=== PATIENT | female | born 1930 | race Caucasian/White ===

== ENCOUNTER → 2018-08-21 | Outpatient (CLI) | payer MEDICARE, OTHER ==
[~2018-08-21] MED LIST: ASPI81CH PO; DONE10 PO; GLIM2 PO; GUAI600T33; LISI20 PO; ROBITUSSIN DM; SIMV10 PO; ZPAK PO
== END | disposition home or self-care (01) ==
LOC: LAB EV 17:54 → LAB SHORT 17:54
DX: N39.0 Urinary tract infection, site not specified (principal)
CPT/HCPCS: 87086

== ENCOUNTER 2019-07-24 17:26 | Observation (INO) | payer MEDICARE, OTHER ==
[~2019-07-24] VITALS: Ht 165.1 cm; Wt 70.3 kg
[~2019-07-24 17:26] MED LIST changes: -ASPI81CH PO; +Aspir 8181 MG PO; -SIMV10 PO; +SIMV40 PO
[2019-07-24 18:35] LABS: BASOPHILS ABSOLUTE AUTO 0.07 K/mm3 (0.00-0.23); BASOPHILS PERCENT AUTO 1 % (0-2); EOSINOPHILS ABSOLUTE AUTO 0.13 K/mm3 (0.00-0.68); EOSINOPHILS PERCENT AUTO 2 % (0-6); Hematocrit 37.7 % (33.0-51.0); IMMATURE GRAN ABSOLUTE AUTO 0.05 K/mm3 (0.00-0.10); IMMATURE GRAN PERCENT AUTO 1 % (0-1); LYMPHOCYTES ABSOLUTE AUTO 1.65 K/mm3 (0.84-5.20); LYMPHOCYTES PERCENT AUTO 19 % (21-46); MONOCYTES ABSOLUTE AUTO 1.43 K/mm3 (0.16-1.47); MONOCYTES PERCENT AUTO 16 % (4-13); Mean Corpuscular HGB 28.3 pg (26.0-34.0); Mean Corpuscular HGB Conc 31.8 g/dL (31.5-36.5); Mean Corpuscular Volume 89 fL (80-100); Mean Platelet Volume 10.5 fL (9.1-12.4); NEUTROPHILS ABSOLUTE AUTO 5.54 K/mm3 (1.96-9.15); NEUTROPHILS PERCENT AUTO 62 % (41-73); Platelet Count 360 K/mm3 (150-400); RDW Coefficient Variation 14.2 % (11.7-14.2); RDW Standard Deviation 45.6 fL (35.1-46.3); Red Blood Cell Count 4.24 M/mm3 (3.80-5.20); White Blood Cell Count 8.87 K/mm3 (4.00-11.30)
[2019-07-24 18:49] LABS: Source, Urine Clean Catch
[2019-07-24 18:52] LABS: Alanine Aminotransfer (ALT/SGP 18 U/L (12-78); Albumin, Blood 2.8 g/dL (3.4-5.0); Albumin/Globulin Ratio 0.7 (0.8-1.8); Alk Phos 64 U/L (50-136); Anion Gap 6 mmol/L (6-16); Aspartate Aminotrans (AST/SGOT 12 U/L (12-37); Bilirubin, Total 0.4 mg/dL (0.1-1.0); Blood Urea Nitrogen 20 mg/dL (8-24); Bun/Creatinine Ratio 32.1 (12.0-20.0); CO2, Blood 28 mmol/L (21-32); Calcium, Blood 8.3 mg/dL (8.5-10.1); Chloride, Blood 106 mmol/L (98-108); Creatinine, Blood 0.62 mg/dL (0.40-1.00); Globulin, Blood 4.2 g/dL (2.2-4.0); Glomerular Filtration Rate >60 (60-); Glucose, Blood 88 mg/dL (70-99); Potassium, Blood 4.1 mmol/L (3.5-5.5); Sodium, Blood 140 mmol/L (136-145)
[2019-07-24 18:55] LABS: Bilirubin, Urine Neg (Neg); Blood, Urine 1+ (Neg); Glucose Qualitative, Urine Neg (Neg); Ketones, Urine Neg (Neg); Leukocyte Esterase, Urine Neg (Neg); Nitrite, Urine Neg (Neg); Protein, Urine Neg (Neg); Specific Gravity, Urine 1.015 (1.003-1.022); Urobilinogen, Urine NORM (Normal)
[2019-07-24] MEDS ORDERED: ALEN70 PO (19:07)
[2019-07-24] MEDS ORDERED: Duoneb 2.5-0.5 M3 ML NEB (19:08)
[2019-07-24 19:16] LABS: Color, Urine Yellow (P-Yellow)
[2019-07-24 19:17] LABS: Appearance, Urine Clear (Clear)
[2019-07-24 19:18] LABS: Bacteria Few /hpf; Red Blood Cells, Urine 0-2 /hpf (0-2); Squamous Epithelial Cells Few /hpf (Few); White Blood Cells, Urine 0-2 /hpf (0-5)
[2019-07-24 19:23] LABS: Magnesium, Blood 2.3 mg/dL (1.6-2.4); Troponin I 0.103 ng/mL (0.000-0.040)
[2019-07-24 19:38] LABS: Influenza A Negative (NEGATIVE); Influenza B Negative (NEGATIVE)
--- NOTE | 2019-07-25 00:34 | NUR ---
3720 REPORT RECEIVED FROM LAKEISHA RN, ER NURSE; TO ROOM 347 PER CART FROM ER; ASSISTED INTO BED VIA SLIDER SHEET X 3 ASSIST; ALERT AND ORIENTED X 1; TELEMETRY APPLIED WHICH REFLECTS A/FIB WITH HEART RATE 72 PER MARYBEL--CABINET ASSEMBLER; O2 APPLIED AT 2L/M PER NASAL CANNULA WITH SATS 94%; BED ALARM APPLIED, BED LOW POSITION WITH CALL LIGHT AT SIDE.
[2019-07-25 02:08] LABS: Hematocrit 38.3 % (33.0-51.0); Mean Corpuscular HGB 28.8 pg (26.0-34.0); Mean Corpuscular HGB Conc 31.3 g/dL (31.5-36.5); Mean Platelet Volume 10.6 fL (9.1-12.4); Platelet Count 354 K/mm3 (150-400); RDW Standard Deviation 47.4 fL (35.1-46.3); Red Blood Cell Count 4.16 M/mm3 (3.80-5.20); White Blood Cell Count 7.06 K/mm3 (4.00-11.30)
[2019-07-25 02:09] LABS: Mean Corpuscular Volume 92 fL (80-100)
[2019-07-25 02:26] LABS: Anion Gap 5 mmol/L (6-16); BAND PERCENT MAN 14 % (0-8); BASOPHILS PERCENT MAN 0 % (0-2); Blood Urea Nitrogen 21 mg/dL (8-24); Bun/Creatinine Ratio 31.5 (12.0-20.0); CO2, Blood 29 mmol/L (21-32); Calcium, Blood 8.2 mg/dL (8.5-10.1); Chloride, Blood 107 mmol/L (98-108); Creatinine, Blood 0.67 mg/dL (0.40-1.00); EOSINOPHILS PERCENT MAN 0 % (0-6); Glomerular Filtration Rate >60 (60-); Glucose, Blood 156 mg/dL (70-99); LYMPHOCYTES ABSOLUTE MAN 0.91 K/mm3 (0.84-5.20); LYMPHOCYTES PERCENT MAN 13 % (21-46); MONOCYTES ABSOLUTE MAN 0.21 K/mm3 (0.16-1.47); MONOCYTES PERCENT MAN 3 % (4-13); NEUTROPHILS ABSOLUTE MAN 5.93 K/mm3 (1.96-9.15); Potassium, Blood 4.3 mmol/L (3.5-5.5); SEG NEUTROPHILS PERCENT MAN 70 % (41-73); Sodium, Blood 141 mmol/L (136-145); TOTAL CELLS COUNTED 100
--- NOTE | 2019-07-25 04:33 | NUR ---
SHIFT SUMMARY: 89 Y/O FEMALE RESTED COMFORTABLY ALL SHIFT; DENIES PAIN OR NAUSEA; NPO STATUS MAINTAINED (Brandan DURAND CONFIRMED NPO STATUS WHEN PATIENT INITIALLY WAS ADMITTED TO FLOOR AND NO IV CURRENTLY ORDERED); PT ALERT AND ORIENTED X 1; ABLE TO FOLLOW ALL SIMPLE VERBAL COMMANDS; THOUGHT PROCESS IS DISORGANIZED; ABLE TO MOVE ALL EXTREMITIES; PT IS DNR; TELEMETRY REFLECTS A/FIB WITH HEART RATE 54 PER NESTOR--TEST CENTER ADMINISTRATOR; BED ALARM APPLIED, BED LOW POSITION WITH CALL LIGHT AT SIDE.
--- NOTE | 2019-07-25 07:00 | NUR ---
ASSUMED CARE OF PT- PT ALERT AND ORIENTED AND INDEPENDENT IN THE PEREZ. PT IS VERY ENERGIZED THIS MORNING AND IS ASKING IF SHE GETS TO GO HOME TODAY. PT IS ON 60 MG IV SOLUMEDROL Q6 AT THIS TIME.
--- NOTE | 2019-07-25 07:15 | NUR ---
ASSUMED CARE OF PT- REPORT COMPLETED WITH NIGHT RN DOV. PER REPORT PT ADMITTED LAST NIGHT FOR POSSIBLE TIA. PT SPEECH SEEMS APPROPRIATE AND THEN GARBLED BACK AND FORTH. ANSWERS MOST QUESTIONS AND FOLLOWS BASIC INSTRUCTIONS. PT IS A 1PA WITH A FWW, PER REPORT SHE IS VERY STABLE WITH THE WALKER.
--- NOTE | 2019-07-25 09:00 | NUR ---
SPOKE TO DR PATRICK- PT HAS NPO ORDER. CAME TO SEE THE PT; FAMILY STATED DR HAD TOLD THE PT SHE CAN EAT WHAT SHE WANTS. RECIEVED ORDER FOR DIET TOLLERATED. PLACED ORDER FOR REGULAR DIET AND REQUESTED A TRAY NOW. PT STATED SHE TAKES HER MEDICATIONS IN APPLE SAUCE. PLACED A FOOD REQUEST FOR APPLESAUCE ON EACH TRAY.
--- NOTE | 2019-07-25 11:00 | NUR ---
PT COGNITION IS LESS THAN ORIGIONALY THOUGHT. PT CAN NOT ANSWER SOME BASIC QUESTIONS ABOUT HERSELF. SHE CAN NOT TELL THE YEAR, PRESIDENT, HER ADRYAN SHE USES A WALKER AT HOME, WHERE SHE LIVES OR WHO SHE LIVES WITH. PT IS ALSO VERY FORGETFULL AND WILL CALL STAFF INTO THE ROOM, ASK A QUESTION, MINUTES LATER SHE WILL CALL STAFF INTO THE ROOM AND SAY "FINALLY SOMEONE CAME" WHEN STAFF INFORM HER THEY WERE JUST THERE SHE BECOMES UPSET SAYING THEN WHY DIDN'T YOU TELL ME WHAT I AM SUPPOSED TO BE DOING. PT DID RECOGNIZE HER DAUGHTER WHEN SHE CAME IN THIS MORNING, SO SHE IS ALERT AND ORIENTED TO SELF AND FAMILY. SHE THINKS SHE IS IN [facility].
--- NOTE | 2019-07-25 11:29 | NUR ---
echocardiogram complete
[2019-07-25 11:36] LABS: Adenovirus Not Detected (NOT DETECT); Bordetella pertussis Not Detected (NOT DETECT); Chlamydophila pneumoniae Not Detected (NOT DETECT); Coronavirus 229E Not Detected (NOT DETECT); Coronavirus HKU1 Not Detected (NOT DETECT); Coronavirus NL63 Not Detected (NOT DETECT); Coronavirus OC43 Not Detected (NOT DETECT); Human Metapneumovirus Not Detected (NOT DETECT); Human Rhinovirus/Enterovirus Detected (NOT DETECT); Influenza A Not Detected (NOT DETECT); Influenza A/2009-H1 Not Detected (NOT DETECT); Influenza A/H1 Not Detected (NOT DETECT); Influenza A/H3 Not Detected (NOT DETECT); Influenza B Not Detected (NOT DETECT); Mycoplasma pneumoniae Not Detected (NOT DETECT); Parainfluenza Virus 1 Not Detected (NOT DETECT); Parainfluenza Virus 2 Not Detected (NOT DETECT); Parainfluenza Virus 3 Not Detected (NOT DETECT); Parainfluenza Virus 4 Not Detected (NOT DETECT); Respiratory Syncytial Virus Not Detected (NOT DETECT)
--- NOTE | 2019-07-25 15:03 | NUR ---
CALLED DR PATRICK- PT REMOVED TELE WIRES AND SOME OF THE PATCHES REMOVED HER ID BAND AND HER IV. WHEN STAFF ENTERED THE ROOM SHE GAVE IT TO THEM. DISCUSSED THE NEED FOR THE IV WITH THE PT. PT SAID "OH. I'M SORRY I DIDN'T KNOW I NEEDED THAT." PT CALMLY WAITED FOR STAFF TO PLACE THE NEW IV. ONCE IT WAS IN PLACE AND COVERED PT REMOVED THE COVER. STAFF COVERED THE IV MORE SECURELY PRIOR TO LEAVING THE ROOM. PT REMOVED THE COVER WELL THE NEW IV. SPOKE TO DR PATRICK ABOUT THIS AND RECIEVED AN ORDER FOR NO IV ACCESS AND DC TELE. LEVAQUIN TO BE CHANGED TO PO. DISCHARGE PLANNING HAS SPOKEN WITH THE PT DAUGHTER ABOUT POSSIBLE NEED FOR PLACEMENT D/T INCREASED CONFUSION. THEY ARE STARTING APD PAPERWORK NOW (AGEING AND PEOPLE WITH DISABILITIES).
--- NOTE | 2019-07-25 16:13 | NUR ---
Rec'd an update of events this afternoon. Pt is currently sitting in the bedside chair sleeping. Will leave her undisturbed at this time. Nursing reports pt's dtr spoke with CM RN re: starting APD process for assistance. Pt currently living at [facility] in the independent living with a caregiver who checks on her. Per chart notes it appears that pt is not able to continue living independently due to increasing confusion and increasing care needs. PC will continue to follow for symptom management and advanced care planning.
--- NOTE | 2019-07-25 17:31 | NUR ---
SHIFT SUMMARY- PT HAS A Hx OF DEMENTIA, THAT SEEMS TO BE ADVANCING. SPEECH EVAL WAS COMPLETED TODAY. PT HAS NO IV ACCESS WELL NO TELE (SEE PREVIOUS NOTES FOR DETAILS). PT FAMILY IS AWARE OF HER COGNITIVE ABILITY AT THIS TIME AND WOULD LIKE TO PLACE THE PT IN A HIGHER LEVEL OF CARE. CARE MANAGEMENT IS ON THE CASE AND IS TRYING TO ASSIST WITH THIS. PT HAD A COMPLAINT OF RIGHT RIB PAIN; FAMILY STATED THE PT HAS HAD A COUPLE OF FALLS RECENTLY AND THAT THE PT MAY HAVE A CRACKED RIB. TYLENOL RESOLVED THE PAIN TO 0/10 PER THE PT. PT IS ON 2L VIA NC THAT IS THE HOME DOSE FOR THIS PT. PT HAS A HOME NEBULIZER MACHINE WELL.
--- NOTE | 2019-07-25 19:35 | NUR ---
REPORT RECEIVED FROM ARANZA DALTON;PT RESTING COMFORTABLY BEDSIDE LOUNGE CHAIR WITH CHAIR ALARM APPLIED.
--- NOTE | 2019-07-26 04:54 | NUR ---
SHIFT SUMMARY: 89 Y/O RESTED COMFORTABLY ALL SHIFT; PT HAD OCCASIONAL EPISODES OF ATTEMPTING TO CLIMB OOB WITH PATIENT ABLE TO BE REDIRECTED WITHOUT ISSUE BY NURSING STAFF; PATIENT SLEPT MAJORITY OF SHIFT IN BED; NO PAIN OR NAUSEA NOTED; WEARING O2 AT 2L/M PER NASAL CANNULA (REAPPLIED MULTIPLE TIMES PATIENT TENDS REMOVED DEVICE AT TIMES); BED ALARM APPLIED, BED LOW POSITION WITH CALL LIGHT AT SIDE.
[2019-07-26 05:32] LABS: BASOPHILS ABSOLUTE AUTO 0.05 K/mm3 (0.00-0.23); BASOPHILS PERCENT AUTO 1 % (0-2); EOSINOPHILS ABSOLUTE AUTO 0.12 K/mm3 (0.00-0.68); EOSINOPHILS PERCENT AUTO 2 % (0-6); Hematocrit 38.1 % (33.0-51.0); Hemoglobin 11.7 g/dL (11.5-16.0); IMMATURE GRAN ABSOLUTE AUTO 0.04 K/mm3 (0.00-0.10); IMMATURE GRAN PERCENT AUTO 1 % (0-1); LYMPHOCYTES ABSOLUTE AUTO 1.46 K/mm3 (0.84-5.20); LYMPHOCYTES PERCENT AUTO 20 % (21-46); MONOCYTES ABSOLUTE AUTO 1.13 K/mm3 (0.16-1.47); MONOCYTES PERCENT AUTO 16 % (4-13); Mean Corpuscular HGB Conc 30.7 g/dL (31.5-36.5); Mean Corpuscular Volume 91 fL (80-100); Mean Platelet Volume 10.6 fL (9.1-12.4); NEUTROPHILS ABSOLUTE AUTO 4.38 K/mm3 (1.96-9.15); NEUTROPHILS PERCENT AUTO 61 % (41-73); Platelet Count 376 K/mm3 (150-400); RDW Coefficient Variation 13.9 % (11.7-14.2); RDW Standard Deviation 47.1 fL (35.1-46.3); Red Blood Cell Count 4.18 M/mm3 (3.80-5.20); White Blood Cell Count 7.18 K/mm3 (4.00-11.30)
[2019-07-26 06:02] LABS: Albumin, Blood 2.5 g/dL (3.4-5.0); Anion Gap 4 mmol/L (6-16); Blood Urea Nitrogen 25 mg/dL (8-24); CO2, Blood 30 mmol/L (21-32); Chloride, Blood 109 mmol/L (98-108); Creatinine, Blood 0.76 mg/dL (0.40-1.00); Glomerular Filtration Rate >60 (60-); Glucose, Blood 89 mg/dL (70-99); Magnesium, Blood 2.4 mg/dL (1.6-2.4); Phosphorus, Blood 3.9 mg/dL (2.5-4.9); Sodium, Blood 143 mmol/L (136-145)
[2019-07-26 06:10] LABS: Troponin I 0.104 ng/mL (0.000-0.040)
[2019-07-26] MEDS ORDERED: ACET325 PO (11:59)
[2019-07-26] MEDS ORDERED: LEVFLO500 PO (12:00)
[2019-07-26] MEDS ORDERED: PRED20 PO (12:00)
--- NOTE | 2019-07-26 15:03 | NUR ---
DISCHARGE NOTE- PT DISCHARGED BACK TO [facility] WITH CAREGIVERS. DAUGHTER PRESENT FOR THE PT DISCHARGE INSTRUCTIONS MEDICATIONS FAXED OVER TO [facility] PER PT REQUEST. PT WAS ESCORTED OUT VIA WC BY THE ELECTRONIC DATA PROCESSING AUDITOR. PT HAS HOME O2. PT O2 SATS WHEN SHE WAS UP AROUND THE ROOM WERE MAINTAINING IN THE 90'S. PT WAS VERY CONFUSED AND HER FAMILY IS AWARE. PT WAS UP AND DOWN ALOT AND IT WAS DIFFICULT TO GET HER TO KEEP THE O2 IN PLACE, SATS SEEMED TO ALWAYS BE IN THE LOW 90'S. PT HAD A MILD STATEMENT OF PAIN IN THE RIGHT LOWER RIB AREA, BUT DID NOT WANT ANY TYLENOL FOR IT. PT HAD NO TELE OR IV AT THE TIME OF DISCHARGE.
== END 2019-07-26 14:15 | disposition home health service (06) ==
LOC: ER 17:26 → MEDS 17:27 → ENPENDDIS 07-26 10:00 → MEDS 07-26 14:15
PROVIDERS: Emergency Medicine; Internal Medicine Gastroenterology; Nurse Practitioner Acute Care; ADMIT Internal Medicine
DX: R47.89 Other speech disturbances (principal); J44.1 Chronic obstructive pulmonary disease with (acute) exacerbation; F03.90 Unspecified dementia, unspecified severity, without behavioral disturbance, psychotic disturbance, mood disturbance, and anxiety; R91.8 Other nonspecific abnormal finding of lung field; I10 Essential (primary) hypertension; E78.5 Hyperlipidemia, unspecified; E11.9 Type 2 diabetes mellitus without complications; Z66 Do not resuscitate; Z88.2 Allergy status to sulfonamides; Z79.82 Long term (current) use of aspirin; Z79.899 Other long term (current) drug therapy
CPT/HCPCS: 0099U; 36415; 70450; 71250; 80048; 80053; 80069; 81001; 83735; 83880; 84145; 84443; 84484; 85025; 87804; 92523; 93005; 93010; 93306; 94640; 94760; 96374; 97162; 99285-25; A9270; J1650; J1956; J2930; J7512

== ENCOUNTER 2019-07-27 08:15 | Inpatient (IN) | payer MEDICARE, OTHER ==
[~2019-07-27] VITALS: Ht 162.6 cm; Wt 61.2 kg
[~2019-07-27 08:15] MED LIST changes: +ACET325 PO; +ALEN70 PO; +Duoneb 2.5-0.5 M3 ML NEB; +LEVFLO500 PO; +PRED20 PO
[2019-07-27 09:33] LABS: BASOPHILS ABSOLUTE AUTO 0.06 K/mm3 (0.00-0.23); BASOPHILS PERCENT AUTO 1 % (0-2); EOSINOPHILS ABSOLUTE AUTO 0.03 K/mm3 (0.00-0.68); EOSINOPHILS PERCENT AUTO 0 % (0-6); Hemoglobin 12.5 g/dL (11.5-16.0); IMMATURE GRAN ABSOLUTE AUTO 0.16 K/mm3 (0.00-0.10); IMMATURE GRAN PERCENT AUTO 1 % (0-1); LYMPHOCYTES ABSOLUTE AUTO 1.04 K/mm3 (0.84-5.20); LYMPHOCYTES PERCENT AUTO 8 % (21-46); MONOCYTES PERCENT AUTO 11 % (4-13); Mean Corpuscular HGB 28.7 pg (26.0-34.0); Mean Corpuscular HGB Conc 30.5 g/dL (31.5-36.5); Mean Platelet Volume 11.1 fL (9.1-12.4); NEUTROPHILS ABSOLUTE AUTO 9.87 K/mm3 (1.96-9.15); NEUTROPHILS PERCENT AUTO 79 % (41-73); Platelet Count 349 K/mm3 (150-400); RDW Coefficient Variation 13.9 % (11.7-14.2); RDW Standard Deviation 48.6 fL (35.1-46.3); Red Blood Cell Count 4.36 M/mm3 (3.80-5.20); White Blood Cell Count 12.56 K/mm3 (4.00-11.30)
[2019-07-27 09:35] LABS: Mean Corpuscular Volume 94 fL (80-100)
[2019-07-27 09:52] LABS: Alanine Aminotransfer (ALT/SGP 20 U/L (12-78); Albumin, Blood 3.1 g/dL (3.4-5.0); Albumin/Globulin Ratio 0.7 (0.8-1.8); Alk Phos 63 U/L (50-136); Anion Gap 4 mmol/L (6-16); Aspartate Aminotrans (AST/SGOT 19 U/L (12-37); Bilirubin, Total 0.6 mg/dL (0.1-1.0); Blood Urea Nitrogen 28 mg/dL (8-24); Bun/Creatinine Ratio 46.1 (12.0-20.0); CO2, Blood 28 mmol/L (21-32); Calcium, Blood 8.3 mg/dL (8.5-10.1); Chloride, Blood 110 mmol/L (98-108); Creatinine, Blood 0.61 mg/dL (0.40-1.00); Globulin, Blood 4.2 g/dL (2.2-4.0); Glomerular Filtration Rate >60 (60-); Glucose, Blood 98 mg/dL (70-99); Potassium, Blood 3.8 mmol/L (3.5-5.5); Sodium, Blood 142 mmol/L (136-145); Total Protein, Blood 7.3 g/dL (6.4-8.2); Troponin I 0.203 ng/mL (0.000-0.040)
[2019-07-27 11:00] LABS: Source, Urine Catheter
[2019-07-27 11:03] LABS: Bilirubin, Urine Neg (Neg); Blood, Urine 2+ (Neg); Glucose Qualitative, Urine Neg (Neg); Ketones, Urine 1+ (Neg); Leukocyte Esterase, Urine Neg (Neg); Nitrite, Urine Neg (Neg); Protein, Urine 2+ (Neg); Urobilinogen, Urine NORM (Normal)
[2019-07-27 11:24] LABS: Appearance, Urine Clear (Clear); Color, Urine Yellow (P-Yellow)
[2019-07-27 11:25] LABS: Bacteria Rare /hpf; Squamous Epithelial Cells Few /hpf (Few)
--- NOTE | 2019-07-27 16:09 | NUR ---
SHIFT SUMMARY PT ADMITTED FROM THE ER THIS AFTERNOON. SHE IS ALERT AND ORIENTED TO HERSELF AND FAMILY AND FOLLOWING DIRECTIONS BUT VERY FORGETFUL AND CONFUSED. SHE C/O PAIN WHEN TURNING IN HER HIPS AND TYLENOL WAS GIVEN ORDERED. NO SWALLOWING ISSUES NOTED. LUNG SOUNDS WERE COARSE AND DAUGHTER REPORTS THAT SHE TAKES BREATHING TX MULTIPLE TIMES A DAY AT HOME AND RT WAS NOTIFIED AND GAVE A TX AT THE BEDSIDE. PT IS ON 2 LPM OF O2 BUT HAS NO S/S OF RESP DISTRESS. PT WAS ORIENTED TO HER ROOM, CALL LIGHT AND NURSING STAFF. BED ALARM IS ON FOR SAFETY. DAUGHTER IS AT BEDSIDE. CALL LIGHT IN REACH.
[2019-07-28 01:40] LABS: BASOPHILS ABSOLUTE AUTO 0.01 K/mm3 (0.00-0.23); BASOPHILS PERCENT AUTO 0 % (0-2); EOSINOPHILS PERCENT AUTO 0 % (0-6); Hematocrit 36.5 % (33.0-51.0); Hemoglobin 11.1 g/dL (11.5-16.0); IMMATURE GRAN ABSOLUTE AUTO 0.03 K/mm3 (0.00-0.10); IMMATURE GRAN PERCENT AUTO 0 % (0-1); LYMPHOCYTES PERCENT AUTO 12 % (21-46); MONOCYTES ABSOLUTE AUTO 0.58 K/mm3 (0.16-1.47); MONOCYTES PERCENT AUTO 9 % (4-13); Mean Corpuscular HGB Conc 30.4 g/dL (31.5-36.5); Mean Corpuscular Volume 92 fL (80-100); Mean Platelet Volume 10.9 fL (9.1-12.4); NEUTROPHILS ABSOLUTE AUTO 5.36 K/mm3 (1.96-9.15); NEUTROPHILS PERCENT AUTO 79 % (41-73); Platelet Count 346 K/mm3 (150-400); RDW Coefficient Variation 13.9 % (11.7-14.2); RDW Standard Deviation 47.6 fL (35.1-46.3); Red Blood Cell Count 3.96 M/mm3 (3.80-5.20); White Blood Cell Count 6.78 K/mm3 (4.00-11.30)
[2019-07-28 01:58] LABS: Anion Gap 4 mmol/L (6-16); Blood Urea Nitrogen 33 mg/dL (8-24); Bun/Creatinine Ratio 39.8 (12.0-20.0); CO2, Blood 29 mmol/L (21-32); Chloride, Blood 110 mmol/L (98-108); Creatinine, Blood 0.83 mg/dL (0.40-1.00); Glomerular Filtration Rate >60 (60-); Glucose, Blood 141 mg/dL (70-99); Potassium, Blood 4.5 mmol/L (3.5-5.5); Sodium, Blood 143 mmol/L (136-145); Troponin I 0.245 ng/mL (0.000-0.040)
--- NOTE | 2019-07-28 04:06 | NUR ---
SHIFT SUMMARY: VSS. AFEB. A/OX2. VERY FORGETFUL. COMMUNICATES NEEDS. BED ALARM ON. NO ATTEMPTS TO GET OOB. PT ACUTELY AWARE OF AND MOVEMENT LIMITED BY PAIN IN PELVIS AND LE. REPORTS PAIN/TENDERNESS TO THE TOUCH BELOW L KNEE. NO BRUISING/SWELLING/OR DEFORMITY VISIBLE. INCREASED WEAKNESS IN LLE COMPARED TO RLE WITH PUSHES/PULLS. OXYCODONE ADMINISTERED AT 1/2 DOSE. PT RADHA WELL. NO RESP SUPPRESION. PAIN IMPROVED AND PT REMAINED AWAKE WATCHING TV COMFORTABLY. CONT TO BE PAINFUL WITH TURNS. SLEEPING INTERMITTENTLY. WILL CONT TO MONITOR.
--- NOTE | 2019-07-28 18:31 | NUR ---
PATIENT A/O TO SELF AND FAMILY ONLY. UP WITH FWW, GB AND 1 ASSIST TO CHAIR TODAY. VSS, ON 2LO2 HERE AND AT BASELINE. FALL PRECAUTIONS PER UNIT PROTOCOL. OXYCODONE GIVEN TO TREAT L PELVIC PAIN. SKIN INTACT. 22G IV TO L HAND WNL AND SL. TOLEARATING DIET. INCONTINENT OF BLADDER, WEARING ATTENDS. CALM AND COOPERATIVE WITH CARE.
--- NOTE | 2019-07-29 05:23 | NUR ---
LEAD SYSTEMS ANALYST SUMMARY Patient awake most of night. Yelling out "help" from room because she wanted to get up, didn't know where she was. Very little pain while lying in bed, but patient would scream out when she was repositioned, or when she would insist on getting up on commode. Patient only took oxycodone once over-night, and it helped her fall right to sleep for a brief time. bed alarm on at all times. frequent checks for safety
[2019-07-29] MEDS ORDERED: OXYC5 PO (13:32)
--- NOTE | 2019-07-29 16:43 | NUR ---
DISCHARGE SUMMARY PATIENT DISCHARGED WITH TRANSPORT SERVICES. PATIENT PAINFUL WITH TRANSFER. 1 PERSON WITH LOTS OF ENCOURAGEMENT TO W/C. FAMILY AT BEDSIDE PRIOR TO DISCHARGE. HARD SCRIPT GIVEN TO DAUGHTER. DAUGHTER STATED SHE WOULD MEET HER MOM AT HER APARTMENT. REPORT CALLED TO HER CAREGIVER.
== END 2019-07-29 16:30 | disposition home health service (06) | DRG 536 ==
LOC: ER 08:15 → MEDS 08:16 → ER 14:40 → MEDS 14:40
PROVIDERS: Emergency Medicine; Internal Medicine; Physician Assistant; ADMIT Internal Medicine
DX: S32.592A Other specified fracture of left pubis, initial encounter for closed fracture (principal); I48.20 Chronic atrial fibrillation, unspecified; J44.1 Chronic obstructive pulmonary disease with (acute) exacerbation; I24.8 Other forms of acute ischemic heart disease; J98.11 Atelectasis; F03.90 Unspecified dementia, unspecified severity, without behavioral disturbance, psychotic disturbance, mood disturbance, and anxiety; W19.XXXA Unspecified fall, initial encounter; I45.19 Other right bundle-branch block; Z87.891 Personal history of nicotine dependence; M16.12 Unilateral primary osteoarthritis, left hip; M81.0 Age-related osteoporosis without current pathological fracture; Z66 Do not resuscitate
CPT/HCPCS: 36415; 36416; 70450; 71045; 73502; 80048; 80053; 81001; 84484; 85025; 93005; 93010; 94640; 94760; 97110; 97162; 97166; 97530; 99285-25; A9270; J1650; J7512; P9612

== ENCOUNTER 2019-08-18 09:48 | Emergency (ER) | payer MEDICARE, OTHER ==
[~2019-08-18] VITALS: Ht 157.5 cm; Wt 72.6 kg
[~2019-08-18 09:48] MED LIST changes: +OXYC5 PO
[2019-08-18] MEDS ORDERED: ASPI81CH PO (10:05)
[2019-08-18 10:33] LABS: BASOPHILS ABSOLUTE AUTO 0.06 K/mm3 (0.00-0.23); BASOPHILS PERCENT AUTO 1 % (0-2); EOSINOPHILS ABSOLUTE AUTO 0.25 K/mm3 (0.00-0.68); EOSINOPHILS PERCENT AUTO 3 % (0-6); Hematocrit 39.3 % (33.0-51.0); Hemoglobin 11.9 g/dL (11.5-16.0); IMMATURE GRAN ABSOLUTE AUTO 0.05 K/mm3 (0.00-0.10); IMMATURE GRAN PERCENT AUTO 1 % (0-1); LYMPHOCYTES ABSOLUTE AUTO 1.13 K/mm3 (0.84-5.20); LYMPHOCYTES PERCENT AUTO 11 % (21-46); MONOCYTES ABSOLUTE AUTO 0.69 K/mm3 (0.16-1.47); MONOCYTES PERCENT AUTO 7 % (4-13); Mean Corpuscular HGB 29.2 pg (26.0-34.0); Mean Corpuscular HGB Conc 30.3 g/dL (31.5-36.5); Mean Corpuscular Volume 96 fL (80-100); Mean Platelet Volume 10.5 fL (9.1-12.4); NEUTROPHILS ABSOLUTE AUTO 7.71 K/mm3 (1.96-9.15); NEUTROPHILS PERCENT AUTO 78 % (41-73); Platelet Count 334 K/mm3 (150-400); RDW Coefficient Variation 15.5 % (11.7-14.2); RDW Standard Deviation 54.4 fL (35.1-46.3); Red Blood Cell Count 4.08 M/mm3 (3.80-5.20); White Blood Cell Count 9.89 K/mm3 (4.00-11.30)
[2019-08-18 10:53] LABS: Alanine Aminotransfer (ALT/SGP 24 U/L (12-78); Albumin, Blood 2.3 g/dL (3.4-5.0); Albumin/Globulin Ratio 0.6 (0.8-1.8); Alk Phos 270 U/L (50-136); Anion Gap 2 mmol/L (6-16); Aspartate Aminotrans (AST/SGOT 27 U/L (12-37); Bilirubin, Total 0.5 mg/dL (0.1-1.0); Blood Urea Nitrogen 17 mg/dL (8-24); CO2, Blood 29 mmol/L (21-32); Calcium, Blood 7.9 mg/dL (8.5-10.1); Chloride, Blood 108 mmol/L (98-108); Creatinine, Blood 0.63 mg/dL (0.40-1.00); Glomerular Filtration Rate >60 (60-); Glucose, Blood 155 mg/dL (70-99); Potassium, Blood 5.1 mmol/L (3.5-5.5); Sodium, Blood 139 mmol/L (136-145); Total Protein, Blood 6.3 g/dL (6.4-8.2)
[2019-08-18] MEDS ORDERED: Lasix20 MG PO (11:36)
== END 2019-08-18 11:54 | disposition home or self-care (01) ==
LOC: ER 09:48
PROVIDERS: Emergency Medicine
DX: S81.811A Laceration without foreign body, right lower leg, initial encounter (principal); R60.0 Localized edema; J44.9 Chronic obstructive pulmonary disease, unspecified; F03.90 Unspecified dementia, unspecified severity, without behavioral disturbance, psychotic disturbance, mood disturbance, and anxiety; Z88.2 Allergy status to sulfonamides; Z79.899 Other long term (current) drug therapy; Z87.891 Personal history of nicotine dependence; W18.30XA Fall on same level, unspecified, initial encounter
CPT/HCPCS: 36415; 71046; 80053; 83880; 84484; 85025; 93005; 93010; 93970

== ENCOUNTER 2019-08-24 09:11 | Emergency (ER) | payer MEDICARE, OTHER ==
[~2019-08-24] VITALS: Ht 160 cm; Wt 70.3 kg
[~2019-08-24 09:11] MED LIST changes: +ASPI81CH PO; +Lasix20 MG PO
[2019-08-24 10:46] LABS: BASOPHILS ABSOLUTE AUTO 0.04 K/mm3 (0.00-0.23); BASOPHILS PERCENT AUTO 0 % (0-2); EOSINOPHILS ABSOLUTE AUTO 0.02 K/mm3 (0.00-0.68); EOSINOPHILS PERCENT AUTO 0 % (0-6); Hematocrit 39.2 % (33.0-51.0); Hemoglobin 11.8 g/dL (11.5-16.0); IMMATURE GRAN ABSOLUTE AUTO 0.12 K/mm3 (0.00-0.10); IMMATURE GRAN PERCENT AUTO 1 % (0-1); LYMPHOCYTES ABSOLUTE AUTO 0.57 K/mm3 (0.84-5.20); LYMPHOCYTES PERCENT AUTO 6 % (21-46); MONOCYTES ABSOLUTE AUTO 1.45 K/mm3 (0.16-1.47); MONOCYTES PERCENT AUTO 14 % (4-13); Mean Corpuscular HGB 28.6 pg (26.0-34.0); Mean Corpuscular HGB Conc 30.1 g/dL (31.5-36.5); Mean Corpuscular Volume 95 fL (80-100); Mean Platelet Volume 10.9 fL (9.1-12.4); NEUTROPHILS PERCENT AUTO 79 % (41-73); Platelet Count 151 K/mm3 (150-400); RDW Coefficient Variation 15.4 % (11.7-14.2); Red Blood Cell Count 4.13 M/mm3 (3.80-5.20)
[2019-08-24] MEDS ORDERED: POTA10T PO (10:46)
[2019-08-24 11:04] LABS: Alanine Aminotransfer (ALT/SGP 16 U/L (12-78); Albumin, Blood 2.3 g/dL (3.4-5.0); Albumin/Globulin Ratio 0.5 (0.8-1.8); Alk Phos 171 U/L (50-136); Anion Gap 5 mmol/L (6-16); Aspartate Aminotrans (AST/SGOT 22 U/L (12-37); Bilirubin, Total 0.3 mg/dL (0.1-1.0); Blood Urea Nitrogen 37 mg/dL (8-24); Bun/Creatinine Ratio 42.2 (12.0-20.0); CO2, Blood 30 mmol/L (21-32); Calcium, Blood 7.9 mg/dL (8.5-10.1); Chloride, Blood 108 mmol/L (98-108); Creatinine, Blood 0.88 mg/dL (0.40-1.00); Globulin, Blood 4.4 g/dL (2.2-4.0); Glomerular Filtration Rate >60 (60-); Glucose, Blood 113 mg/dL (70-99); Sodium, Blood 143 mmol/L (136-145); Total Protein, Blood 6.7 g/dL (6.4-8.2); Troponin I 0.166 ng/mL (0.000-0.040)
[2019-08-24] MEDS ORDERED: DOXYCYCLINE HY200 MG PO (13:26)
[2019-08-24] MEDS ORDERED: CEPH500 PO (13:26)
== END 2019-08-24 13:57 | disposition home or self-care (01) ==
LOC: ER 09:11
PROVIDERS: Emergency Medicine
DX: L03.115 Cellulitis of right lower limb (principal); J44.9 Chronic obstructive pulmonary disease, unspecified
CPT/HCPCS: 71045; 73610; 80053; 84484; 85025; 93005; 93010; J0690

== ENCOUNTER 2019-08-25 09:03 | Inpatient (IN) | payer MEDICARE, OTHER ==
[~2019-08-25] VITALS: Ht 165.1 cm; Wt 72.6 kg
[~2019-08-25 09:03] MED LIST changes: +CEPH500 PO; +DOXYCYCLINE HY200 MG PO; +POTA10T PO
[2019-08-25 10:01] LABS: Hematocrit 33.7 % (33.0-51.0); Mean Corpuscular HGB 29.5 pg (26.0-34.0); Mean Corpuscular HGB Conc 29.7 g/dL (31.5-36.5); Mean Corpuscular Volume 99 fL (80-100); Mean Platelet Volume 11.1 fL (9.1-12.4); Platelet Count 237 K/mm3 (150-400); RDW Coefficient Variation 15.6 % (11.7-14.2); RDW Standard Deviation 56.7 fL (35.1-46.3); Red Blood Cell Count 3.39 M/mm3 (3.80-5.20); White Blood Cell Count 14.98 K/mm3 (4.00-11.30)
[2019-08-25 10:10] LABS: Albumin/Globulin Ratio 0.5 (0.8-1.8); Bilirubin, Total 0.4 mg/dL (0.1-1.0); Bun/Creatinine Ratio 31.6 (12.0-20.0); Calcium, Blood 7.7 mg/dL (8.5-10.1); Creatinine, Blood 1.52 mg/dL (0.40-1.00); Globulin, Blood 4.1 g/dL (2.2-4.0); Potassium, Blood 4.7 mmol/L (3.5-5.5); Total Protein, Blood 6.1 g/dL (6.4-8.2)
[2019-08-25 10:20] LABS: Source, Urine Catheter
[2019-08-25 10:23] LABS: BAND PERCENT MAN 22 % (0-8); BASOPHILS PERCENT MAN 0 % (0-2); EOSINOPHILS PERCENT MAN 0 % (0-6); LYMPHOCYTES ABSOLUTE MAN 0.74 K/mm3 (0.84-5.20); LYMPHOCYTES PERCENT MAN 5 % (21-46); MONOCYTES ABSOLUTE MAN 1.49 K/mm3 (0.16-1.47); MONOCYTES PERCENT MAN 10 % (4-13); NEUTROPHILS ABSOLUTE MAN 12.73 K/mm3 (1.96-9.15); SEG NEUTROPHILS PERCENT MAN 63 % (41-73); TOTAL CELLS COUNTED 100
[2019-08-25 10:27] LABS: Bilirubin, Urine Neg (Neg); Blood, Urine 2+ (Neg); Glucose Qualitative, Urine Neg (Neg); Ketones, Urine Neg (Neg); Leukocyte Esterase, Urine 2+ (Neg); Nitrite, Urine Neg (Neg); Protein, Urine 2+ (Neg); Urobilinogen, Urine NORM (Normal)
[2019-08-25 10:33] LABS: Appearance, Urine Hazy (Clear); Color, Urine Amber (P-Yellow)
[2019-08-25 10:34] LABS: Bacteria Many /hpf; Squamous Epithelial Cells Many /hpf (Few)
[2019-08-25 10:35] LABS: Triple Phosphate Crystals Few /hpf
[2019-08-25 10:36] LABS: Amorphous Light (0-Heavy)
--- NOTE | 2019-08-25 16:40 | NUR ---
Joint visit with Dr Kirkpatrick. Pt resting in bed and is non responsive at this time. Family at bedside including Pt's daughter Lashaun (MPOA). Dr Kirkpatrick discusses plan of care and educates family of CT and X-Ray findings. This RN established rapport with family. Bedside RN Nikita arrives for admission screening. Lashaun is agreeable to meet with Palliative Care tomorrow after work around 3:00. Palliative Care will F/U for therapeutic visit and Advanced Care Planning.
--- NOTE | 2019-08-25 16:40 | NUR ---
SHIFT SUMMARY PT WAS ADMITTED FROM THE ED THIS AFTERNOON WITH HER FAMILY AT THE BEDSIDE. PT WAS NOT RESPONSIVE UPON ARRIVAL AND THE DAUGHTER REPORTS THAT SHE LIVES AT [facility] AND THEY CALLED HER THIS MORNING TO REPORT THAT THEY WERE NOT ABLE TO WAKE HER THIS MORNING. UPON ARRIVAL PT RESPIRATIONS WERE LABORED WITH COARSE LUNG SOUNDS THROUGHOUT WITH A TEMP. ADMITTING DR WAS NOTIFIED AND RESPIRATORY PANEL WAS COMPLETED ORDERED AND DROPLET PRECAUTIONS INITIATED. EDUCATION ON PRECAUTIONS WAS COMPLETED WITH FAMILY. PT HAS MULTIPLE WOUNDS ON HER HEELS, RIGHT CORREA AND BUTTOCK ALL CHARTED IN ASSESSMENT AND FAMILY REPORTS THEY ARE CHRONIC WOUNDS. PT WAS ASSISTED INTO A HOSPITAL GOWN WITH CLEAN LINENS. SHE IS ON 2LPM VIA N.C. AND WITH REPOSITIONING IS RESTING COMFORTABLY.
[2019-08-25 17:33] LABS: Adenovirus Not Detected (NOT DETECT); Bordetella pertussis Not Detected (NOT DETECT); Chlamydophila pneumoniae Not Detected (NOT DETECT); Coronavirus 229E Not Detected (NOT DETECT); Coronavirus HKU1 Not Detected (NOT DETECT); Coronavirus NL63 Not Detected (NOT DETECT); Coronavirus OC43 Not Detected (NOT DETECT); Human Metapneumovirus Not Detected (NOT DETECT); Human Rhinovirus/Enterovirus Not Detected (NOT DETECT); Influenza A/2009-H1 Not Detected (NOT DETECT); Influenza A/H1 Not Detected (NOT DETECT); Influenza A/H3 Not Detected (NOT DETECT); Influenza B Not Detected (NOT DETECT); Mycoplasma pneumoniae Not Detected (NOT DETECT); Parainfluenza Virus 1 Not Detected (NOT DETECT); Parainfluenza Virus 2 Not Detected (NOT DETECT); Parainfluenza Virus 3 Not Detected (NOT DETECT); Parainfluenza Virus 4 Not Detected (NOT DETECT); Respiratory Syncytial Virus Not Detected (NOT DETECT)
--- NOTE | 2019-08-26 04:59 | NUR ---
SUMMARY PT REMAINS UNRESPONSIVE. PT HAS REQUIRED SUCTIONING DUE TO ORAL SECRETIONS. PT HOB RAISED TO REDUCE ASPIRATION WELL. PT REPOSITIONED AND CHANGED NEEDED. NO OTHER ISSUES NOTED. CALL LIGHT IN REACH AND BED ALARM ON. WCTM.
[2019-08-26 05:39] LABS: Hemoglobin 10.3 g/dL (11.5-16.0); Mean Corpuscular HGB 28.9 pg (26.0-34.0); Mean Corpuscular HGB Conc 28.6 g/dL (31.5-36.5); Mean Corpuscular Volume 101 fL (80-100); Platelet Count 241 K/mm3 (150-400); RDW Coefficient Variation 15.4 % (11.7-14.2); RDW Standard Deviation 57.5 fL (35.1-46.3); Red Blood Cell Count 3.57 M/mm3 (3.80-5.20); White Blood Cell Count 9.95 K/mm3 (4.00-11.30)
[2019-08-26 05:51] LABS: Bun/Creatinine Ratio 56.5 (12.0-20.0); Calcium, Blood 7.9 mg/dL (8.5-10.1); Creatinine, Blood 0.97 mg/dL (0.40-1.00); Potassium, Blood 4.9 mmol/L (3.5-5.5)
[2019-08-26 06:05] LABS: BAND PERCENT MAN 8 % (0-8); BASOPHILS PERCENT MAN 0 % (0-2); EOSINOPHILS PERCENT MAN 0 % (0-6); LYMPHOCYTES ABSOLUTE MAN 0.59 K/mm3 (0.84-5.20); LYMPHOCYTES PERCENT MAN 6 % (21-46); MONOCYTES ABSOLUTE MAN 0.19 K/mm3 (0.16-1.47); MONOCYTES PERCENT MAN 2 % (4-13); NEUTROPHILS ABSOLUTE MAN 9.15 K/mm3 (1.96-9.15); SEG NEUTROPHILS PERCENT MAN 84 % (41-73); TOTAL CELLS COUNTED 100
--- NOTE | 2019-08-26 16:57 | NUR ---
Pt visit this afternoon. Pt resting in bed with her eyes closed. Pt will occasionaly open her eyes but does not respond verbaly. Pt appears comfortable with no S/S of distress at this time. Pt's daughter Lashaun at bedside and is ocasionaly tearful. Offered emotional support and therapeutic listening. Discussed completing POLST and educated on life sustaining measures. Lashaun completes POLST with Pt wishes to be DNR and Comfort Measures Only. Assisted Bedside RN Pily with changing Pt's brief and repositioning. No other concerns reported at this time. Palliative Care will obtain copy of POLST upon MD signature for medical records. Will remain available for symptom management and therapeutic visits.
--- NOTE | 2019-08-26 17:37 | NUR ---
SHIFT SUMMARY- PT TRANSITIONED TO COMFORT CARE TODAY, PER DAUGHTER HOSPICE IS NOT ABLE TO ADMIT PT UNTIL NEXT SATURDAY. PT HAS REMAINED UNRESPONSIVE T/O THE DAY, PT WILL OPEN EYES AT TIMES BUT IS NONVERBAL. LS DIMINISHED WITH SOME COARSENESS NOTED, ON 3L N/C, SUCTION AT TIMES. 2+ BLE EDEMA. PT WITH GOOD URINE OUTPUT, INCONT. DRESSINGS TO RIGHT CORREA CHANGED X2, DRESSING TO BILAT HEALS C/D/I, HEAL PROTECTORS PLACED, SACRAL DRESSING C/D/I. DAUGHTER HAS BEEN IN T/O THE DAY. PT APPEARS COMFORTABLE WHEN RESTING, PT NOTED TO GRIMACE WITH MOVING R/T RECENT PELVIC FX, PALLIATIVE CARE RECOMMENDED PRE MEDICATING WHEN NEEDING TO REPOSITION. NO OTHER ACUTE CHANGES THIS SHIFT.
--- NOTE | 2019-08-26 18:22 | NUR ---
Spiritual care note: Several attempts to meet with family today. ON each attempt, pt alone in room. Mrs. Cordova is non-resposive and appears comfortable. Breaths even with no signs of distress. I prayed for he at bedside for peaceful transition. I will remain available to family.
--- NOTE | 2019-08-26 20:17 | NUR ---
COMFORT CARE ROUND; CHECKED LINEN; REPOSITIONED TO RIGHT SIDE FROM LEFT. PATIENT IS RESTING QUIETLY, NON-VERBAL; NO APPARENT DISTRESS NOTED. DRESSINGS C/D/I. RESPIRATIONS EVEN AND UNLABORED. NO SECRETIONS OF NOTE. WILL CONTINUE TO MONITOR.
--- NOTE | 2019-08-27 07:24 | NUR ---
patient remain s unresponsive on comfort care. she was repositioned for comfort q2h. oral care was performed. heels were floated. report passed to day vero
--- NOTE | 2019-08-27 10:03 | NUR ---
AM ASSESSMENT- PT LYING IN BED WITH EYES SLIGHTLY OPEN BUT DOES NOT VERBALLY RESPOND OR FOLLOW COMMANDS. LS DIMINISHED WITH SOME COARSENESS NOTED, ON 3L N/C. 2+ BLE EDEMA. INCONT OF URINE. DRESSING TO COCCYX AND RIGHT CORREA C/D/I. HEAL PROTECTORS IN PLACE WITH MEPILEX. PT REPOSITIONED. NO APPARENT DISTRESS NOTED. PT APPEARS COMFORTABLE WHEN RESTING.
[2019-08-27] MEDS ORDERED: MORP20L SL (11:33)
[2019-08-27] MEDS ORDERED: Ativan1 MG PO (12:00)
--- NOTE | 2019-08-27 17:07 | NUR ---
DISCHARGE INSTRUCTIONS REVIEWED WITH FAMILY. HARD SCRIPT FOR ATIVAN AND ROXANOL GIVEN TO DAUGHTER TO FILL. HOSPITAL BED DELIVERED TO [facility] TRANSPORT SCHEDULED FOR 1814. FAMILY AGREEABLE WITH DISCHARGE BACK TO [facility]. [facility] TO ADMIT TOMORROW AM.
--- NOTE | 2019-08-27 18:38 | NUR ---
PT DISCHARGED BACK TO [place] [facility]IA [facility] TRANSPORT AT 1837. FAMILY AT BEDSIDE.
== END 2019-08-27 18:36 | disposition hospice, home (50) | DRG 871 ==
LOC: ER 09:03 → MEDS 13:48
PROVIDERS: Emergency Medicine; Student in an Organized Health Care Education/Training Program; ADMIT Internal Medicine
DX: A41.81 Sepsis due to Enterococcus (principal); J18.9 Pneumonia, unspecified organism; I63.9 Cerebral infarction, unspecified; G93.41 Metabolic encephalopathy; S32.599A Other specified fracture of unspecified pubis, initial encounter for closed fracture; N39.0 Urinary tract infection, site not specified; J44.1 Chronic obstructive pulmonary disease with (acute) exacerbation; J44.0 Chronic obstructive pulmonary disease with (acute) lower respiratory infection; N17.9 Acute kidney failure, unspecified; R65.20 Severe sepsis without septic shock; F03.90 Unspecified dementia, unspecified severity, without behavioral disturbance, psychotic disturbance, mood disturbance, and anxiety; I10 Essential (primary) hypertension; Z51.5 Encounter for palliative care; Z66 Do not resuscitate; L89.300 Pressure ulcer of unspecified buttock, unstageable; L89.891 Pressure ulcer of other site, stage 1; E11.622 Type 2 diabetes mellitus with other skin ulcer; E78.5 Hyperlipidemia, unspecified; M81.0 Age-related osteoporosis without current pathological fracture; Z87.891 Personal history of nicotine dependence; Z88.2 Allergy status to sulfonamides; Z79.82 Long term (current) use of aspirin; Z79.899 Other long term (current) drug therapy
CPT/HCPCS: 0099U; 36415; 70450; 71045; 80048; 80053; 81001; 83605; 85025; 87040; 87077; 87086; 87147; 87186; 93005; 93010; 94760; 96365; 96372-59; 99285-25; J0456; J0696; J1650; J2543; J2930; J3370; J7030; J7050; P9612